=== PATIENT | female | born 1985 | race African-American/Black ===

== ENCOUNTER 2016-05-15 14:26 | Emergency (ER) | payer OTHER ==
[~2016-05-15] VITALS: Ht 175.3 cm; Wt 89.4 kg
[2016-05-15] MEDS ORDERED: KETOROLAC TROMETHAMINE 60 MG/2 ML SYRINGE. IM ONE (15:30)
[2016-05-15 15:44] LABS: OBC FLU VALID
[2016-05-15 16:34] VITALS: BP 126/80
--- NOTE | 2016-05-15 16:41 | PHYS DOC ---
Past Medical History Past Medical History: Anxiety, Bronchitis, Depression Past Surgical History: Tubal ligation, Other Additional Past Surgical Histo: cyst removal left breast Additional Information: 1/2 - 1 PACK/DAY Alcohol Use: Rarely Drug Use: None Adult General Chief Complaint Chief Complaint: CHEST WALL PAIN HPI HPI 30-year-old female who is had mild chest discomfort as well as a sore throat and headache after known exposure to her child who had strep and influenza type A. Patient states she's had symptoms for the last day area. She is concerned that she could have flu or strep throat and would like to be tested. She denies any significant health problems she denies any significant shortness of breath. Patient is speaking in complete sentences in no distress whatsoever. She states she has had minimal appetite but has been able to wrinkle water without difficulty. She has not taken anything for her symptoms. Review of Systems Review of Systems Constitutional: Denies fever or chills [] Eyes: Denies change in visual acuity, redness, or eye pain [] HENT: Has nasal congestion, has sore throat [] Respiratory: Denies cough or shortness of breath [] Cardiovascular: No additional information not addressed in HPI [] GI: Denies abdominal pain, nausea, vomiting, bloody stools or diarrhea [] : Denies dysuria or hematuria [] Musculoskeletal: Denies back pain or joint pain [] Integument: Denies rash or skin lesions [] Neurologic: Denies headache, focal weakness or sensory changes [] Endocrine: Denies polyuria or polydipsia [] Current Medications Current Medications Current Medications Medications (Trade) [place] [facility] [place] Start Time Stop Time Status Last Admin Dose Admin Ketorolac Tromethamine (Toradol Im) 60 mg 1X ONCE 05/15/16 15:30 05/15/16 15:31 DC 05/15/16 15:35 60 MG Allergies Allergies Allergies Coded Allergies Type Severity Reaction Last Updated Verified No Known Drug Allergies 05/21/13 No Physical Exam Physical Exam Constitutional: Well developed, well nourished, no acute distress, non-toxic appearance. [] HENT: Normocephalic, atraumatic, bilateral external ears normal, oropharynx moist, no oral exudates, nose normal. [] Eyes: PERRLA, EOMI, conjunctiva normal, no discharge. [] Neck: Normal range of motion, no tenderness, supple, no stridor. [] Cardiovascular:Heart rate regular rhythm, no murmur [] Lungs & Thorax: Bilateral breath sounds clear to auscultation [] Abdomen: Bowel sounds normal, soft, no tenderness, no masses, no pulsatile masses. [] Skin: Warm, dry, no erythema, no rash. [] Back: No tenderness, no CVA tenderness. [] Extremities: No tenderness, no cyanosis, no clubbing, ROM intact, no edema. [] Neurologic: Alert and oriented X 3, normal motor function, normal sensory function, no focal deficits noted. [] Psychologic: Affect normal, judgement normal, mood normal. [] Current Patient Data Vital Signs Vital Signs Date Time Temp Pulse Resp B/P Pulse Ox O2 Delivery O2 Flow Rate FiO2 05/15/16 14:37 98.3 99 20 142/83 100 Room Air 98.3 Lab Values Laboratory Tests Test 05/15/16 14:36 Influenza Type A Antigen Negative (NEGATIVE) Influenza Type B Antigen Negative (NEGATIVE) EKG EKG [] Radiology/Procedures Radiology/Procedures [] Course & Med Decision Making Course & Med Decision Making Pertinent Labs and Imaging studies reviewed. (See chart for details) This 30 yo female has negative strep test and influenza and will be discharged with instruction to continue drink plenty of fluids and to take anti- inflammatories as needed. There is no indication to perform any laboratory testing at this time. She will be discharged with her primary care doctor next several days for symptom resolution. Dragon Disclaimer Dragon Disclaimer This electronic medical record was generated, in whole or in part, using a voice recognition dictation system. Departure Departure Impression: Primary Impression: Sore throat Disposition: 01 HOME, SELF-CARE Condition: STABLE Referrals: TITO EVANS MD (PCP) Patient Instructions: Viral Pharyngitis Additional Instructions: Please follow up with your primary doctor in the next 2-3 days for your symptoms. Return to the ER if you develop any worsening of your symptoms. Continue to drink plenty of fluids and take anti-inflammatories. Return to the ER if you develop any worsening of your symptoms. Scripts Ibuprofen 800 Mg [id number] Mg PO PRN Q6HRS PRN INFLAMMATION #20 TAB Prov:CHRISSIE SNOW DO 05/15/16 CHRISSIE SNOW DO May 15, 2016 16:41
[2016-05-15] MEDS ORDERED: IBUP-1060 PO (16:44)
[2016-05-15 20:08] LABS: NEG OBC UR NEG
[2016-05-15 20:09] LABS: POS OBC UR POS
[2016-05-16 07:24] LABS: NEGATIVE OBC STREP NEG; POSITIVE OBC STREP POS
== END 2016-05-15 16:53 | disposition home or self-care (01) ==
LOC: ER 14:26
DX: J02.9 Acute pharyngitis, unspecified (principal); F32.9 Major depressive disorder, single episode, unspecified; R07.89 Other chest pain; F41.9 Anxiety disorder, unspecified; F17.210 Nicotine dependence, cigarettes, uncomplicated
CPT/HCPCS: 81025; 87070; 87804; 87880; 96372; 99284; J1885

== ENCOUNTER → 2016-07-21 | Outpatient (CLI) | payer OTHER ==
[~2016-07-21] MED LIST: IBUP-1060 PO
--- NOTE | 2016-07-21 16:54 | RAD ---
Left breast ultrasound, 07/21/2016: History: Lump, pain A targeted ultrasound exam of the area of clinical concern at the 7:00 location was performed. There is a 9 mm simple cyst at the 7:00 location, located approximately 7 cm from the nipple. More centrally at the 7:00 location approximately 4 cm from the nipple there is a 5 x 6 x 3 mm smooth oval-shaped hypoechoic nodule that demonstrates low level internal echoes with faint posterior acoustic enhancement. This probably represents a small complicated cyst or fibroadenoma. No other abnormality is seen in this region. IMPRESSION: 1. Simple cyst at the 7:00 location. 2. Nearby smooth hypoechoic nodule which is probably a complicated cyst or fibroadenoma. Sonographic follow-up is suggested to confirm stability. BI-RADS 3-probably benign finding
== END | disposition home or self-care (01) ==
LOC: US 14:44
PROVIDERS: ATTEND Family Medicine
DX: N63 Unspecified lump in breast (principal)
CPT/HCPCS: 76641

== ENCOUNTER 2017-09-28 19:09 | Emergency (ER) | payer OTHER | END 2017-09-28 20:14 | disposition home or self-care (01) | LOC: ER 19:09 | DX: S80.862A Insect bite (nonvenomous), left lower leg, initial encounter (principal); S80.861A Insect bite (nonvenomous), right lower leg, initial encounter; W57.XXXA Bitten or stung by nonvenomous insect and other nonvenomous arthropods, initial encounter; Y93.89 Activity, other specified; Y99.8 Other external cause status; Y92.89 Other specified places as the place of occurrence of the external cause | CPT/HCPCS: 99283 ==

== ENCOUNTER 2021-09-06 16:40 | Emergency (ER) | payer OTHER ==
[~2021-09-06] VITALS: Ht 175.3 cm; Wt 88.6 kg
[~2021-09-06 16:40] MED LIST changes: +TRIA15OI TP
[2021-09-06] MEDS ORDERED: NITROGLYCERIN SUBLINGUAL 0.4 MG BOTTLE OF 25. SL PRN (17:00)
[2021-09-06] MEDS ORDERED: MORPHINE SULFATE 2 MG/ML INJ. IV/SQ PRN (17:00)
[2021-09-06] MEDS ORDERED: ASPIRIN 325 MG TABLET PO ONE (17:00)
[2021-09-06 17:13] LABS: BASO % 1 % (0-3); EOS # 0.2 x10^3/uL (0.0-0.7); EOS % 3 % (0-3); HEMATOCRIT 32.8 % (36.0-47.0); LYMPH % 38 % (24-48); MEAN CORPUSCULAR HEMOGLOBIN 29 pg (25-35); MEAN CORPUSCULAR HGB CONC 33 g/dL (31-37); MEAN CORPUSCULAR VOLUME 86 fL (79-100); MONO # 0.4 x10^3/uL (0.0-1.1); MONO % 7 % (0-9); NEUT # 2.8 x10^3/uL (1.8-7.7); NEUT % 52 % (31-73); PLATELET COUNT 250 x10^3/uL (140-400); RED BLOOD COUNT 3.83 x10^6/uL (3.50-5.40); RED CELL DISTRIBUTION WIDTH 15.2 % (11.5-14.5); WHITE BLOOD COUNT 5.4 x10^3/uL (4.0-11.0)
--- NOTE | 2021-09-06 17:20 | RAD ---
Exam: Chest one view INDICATION: Chest pain, pain TECHNIQUE: Frontal view of the chest Comparisons: 05/21/2013 FINDINGS: The cardiomediastinal silhouette and pulmonary vessels are within normal limits. The lung and pleural spaces are clear. IMPRESSION: No acute cardiopulmonary process. Electronically signed by: Sonu Farrell MD (09/06/2021 5:18 PM) JC
[2021-09-06 17:30] LABS: CALCIUM 9.1 mg/dL (8.5-10.1); CREATININE 0.8 mg/dL (0.6-1.0); GFR 97.1; POTASSIUM 3.7 mmol/L (3.5-5.1)
[2021-09-06 17:36] LABS: MAGNESIUM 1.8 mg/dL (1.8-2.4); TOTAL BILIRUBIN 0.3 mg/dL (0.2-1.0)
--- NOTE | 2021-09-06 17:45 | PHYS DOC ---
Past Medical History Past Medical History: Anxiety, Bronchitis, Depression Past Surgical History: Tubal ligation, Other Additional Past Surgical Histo: cyst removal right breast Smoking Status: Current Every Day Smoker Alcohol Use: None Drug Use: None General Adult EDM: Chief Complaint: CHEST PAIN HPI: HPI: Patient is a 36 year old female with a history of anxiety, depression, current smoker. Presented to the ED today complaining of a 6 out of 10 substernal chest pain, symptoms have been going on for 1 week. Patient denies anything specifically relieving the symptoms but states smoking exacerbates the symptoms. She states she has been under a lot of stress and her stress levels are high. Denies any SI or HI. Reports having similar chest pain whenever she is under stress. Review of Systems: Review of Systems: Constitutional: Denies fever or chills. [] Eyes: Denies change in visual acuity. [] HENT: Denies nasal congestion or sore throat. [] Respiratory: Denies cough or shortness of breath. [] Cardiovascular: Reports chest pain GI: Denies abdominal pain, nausea, vomiting, bloody stools or diarrhea. [] : Denies dysuria. [] Musculoskeletal: Denies back pain or joint pain. [] Integument: Denies rash. [] Neurologic: Denies headache, focal weakness or sensory changes. [] Psychiatric: Reports stress Heart Score: C/O Chest Pain: N/A Risk Factors: Risk Factors: DM, Current or recent (<one month) smoker, HTN, HLP, family history of CAD, obesity. Risk Scores: Score 0 - 3: 2.5% MACE over next 6 weeks - Discharge Home Score 4 - 6: 20.3% MACE over next 6 weeks - Admit for Clinical Observation Score 7 - 10: 72.7% MACE over next 6 weeks - Early Invasive Strategies Current Medications: Current Medications Medications (Trade) Dose Ordered Sig/Ivelisse Start Time Stop Time Status Last Admin Dose Admin Aspirin (Shantelle Aspirin) 325 mg 1X ONCE 09/06/21 17:00 09/06/21 17:06 DC 09/06/21 17:26 325 MG Morphine Sulfate (Morphine Sulfate) 2 mg PRN Q15MIN PRN 09/06/21 17:00 09/07/21 16:59 09/06/21 17:26 2 MG Nitroglycerin (Nitrostat) 0.4 mg PRN Q5MIN PRN 09/06/21 17:00 09/07/21 16:59 09/06/21 17:26 0.4 MG Allergies: Allergies: Allergies Coded Allergies Type Severity Reaction Last Updated Verified No Known Drug Allergies 05/21/13 No Physical Exam: PE: Constitutional: Well developed, well nourished, no acute distress, non-toxic appearance. [] HENT: Normocephalic, atraumatic, bilateral external ears normal, oropharynx moist, no oral exudates, nose normal. [] Eyes: PERRLA, EOMI, conjunctiva normal, no discharge. [] Neck: Normal range of motion, no tenderness, supple, no stridor. [] Cardiovascular:Heart rate regular rhythm, no murmur [] Lungs & Thorax: Bilateral breath sounds clear to auscultation [] Abdomen: Bowel sounds normal, soft, no tenderness, no masses, no pulsatile masses. [] Skin: Warm, dry, no erythema, no rash. [] Back: No tenderness, no CVA tenderness. [] Extremities: No tenderness, no cyanosis, no clubbing, ROM intact, no edema. [] Neurologic: Alert and oriented X 3, normal motor function, normal sensory function, no focal deficits noted. [] Psychologic: Affect normal, judgement normal, mood normal. [] Current Patient Data: Labs: Laboratory Tests Test 09/06/21 16:58 White Blood Count 5.4 x10^3/uL (4.0-11.0) Red Blood Count 3.83 x10^6/uL (3.50-5.40) Hemoglobin 11.0 g/dL (12.0-15.5) L Hematocrit 32.8 % (36.0-47.0) L Mean Corpuscular Volume 86 fL (79-100) Mean Corpuscular Hemoglobin 29 pg (25-35) Mean Corpuscular Hemoglobin Concent 33 g/dL (31-37) Red Cell Distribution Width 15.2 % (11.5-14.5) H Platelet Count 250 x10^3/uL (140-400) Neutrophils (%) (Auto) 52 % (31-73) Lymphocytes (%) (Auto) 38 % (24-48) Monocytes (%) (Auto) 7 % (0-9) Eosinophils (%) (Auto) 3 % (0-3) Basophils (%) (Auto) 1 % (0-3) Neutrophils # (Auto) 2.8 x10^3/uL (1.8-7.7) Lymphocytes # (Auto) 2.0 x10^3/uL (1.0-4.8) Monocytes # (Auto) 0.4 x10^3/uL (0.0-1.1) Eosinophils # (Auto) 0.2 x10^3/uL (0.0-0.7) Basophils # (Auto) 0.0 x10^3/uL (0.0-0.2) Sodium Level 136 mmol/L (136-145) Potassium Level 3.7 mmol/L (3.5-5.1) Chloride Level 104 mmol/L (98-107) Carbon Dioxide Level 22 mmol/L (21-32) Anion Gap 10 (6-14) Blood Urea Nitrogen 10 mg/dL (7-20) Creatinine 0.8 mg/dL (0.6-1.0) Estimated GFR (Cockcroft-Gault) 97.1 BUN/Creatinine Ratio 13 (6-20) Glucose Level 83 mg/dL (70-99) Calcium Level 9.1 mg/dL (8.5-10.1) Magnesium Level 1.8 mg/dL (1.8-2.4) Total Bilirubin 0.3 mg/dL (0.2-1.0) Aspartate Amino Transferase (AST) 21 U/L (15-37) Alanine Aminotransferase (ALT) 13 U/L (14-59) L Alkaline Phosphatase 52 U/L (46-116) Troponin I High Sensitivity < 4 ng/L (4-50) L Total Protein 8.0 g/dL (6.4-8.2) Albumin 4.0 g/dL (3.4-5.0) Albumin/Globulin Ratio 1.0 (1.0-1.7) Laboratory Tests 09/06/21 16:58 Laboratory Tests 09/06/21 16:58 Vital Signs: Vital Signs Date Time Temp Pulse Resp B/P (MAP) Pulse Ox O2 Delivery O2 Flow Rate FiO2 09/06/21 17:26 16 09/06/21 17:26 95 147/89 09/06/21 16:50 98.1 100 Room Air 98.1 EKG: EK interpreted by Dr. Vila sinus rhythm heart rate 72 no STEMI [] Radiology/Procedures: Radiology/Procedures: []PROCEDURE: PORTABLE CHEST 1V Exam: Chest one view INDICATION: Chest pain, pain TECHNIQUE: Frontal view of the chest Comparisons: 05/21/2013 FINDINGS: The cardiomediastinal silhouette and pulmonary vessels are within normal limits. The lung and pleural spaces are clear. IMPRESSION: No acute cardiopulmonary process. Electronically signed by: Sonu Razo MD (09/06/2021 5:18 PM) [facility] DICTATED and SIGNED BY: SONU RAZO MD DATE: 09/06/21 113 Course & Med Decision Making: Course & Med Decision Making Pertinent Labs and Imaging studies reviewed. (See chart for details) This is a 36-year-old female patient presenting to the ED today complaining of chest pain that has been going on for 1 week. EKG is negative, troponin is negative, chest x-ray is negative, CBC CMP with no acute findings, vitals are stable. Discharged to home. Follow-up with PCP and telemedicine physician in the course of this week. Encouraged to consider smoking cessation. Encouraged patient to consider getting help through [facility] for stress Dragon Disclaimer: Dragon Disclaimer: This electronic medical record was generated, in whole or in part, using a voice recognition dictation system. Departure Departure Impression: Primary Impression: Chest pain Qualified Codes: R07.9 - Chest pain, unspecified Additional Impressions: Stress Smoking addiction Disposition: HOME / SELF CARE / HOMELESS Condition: STABLE Referrals: TITO EVANS MD (PCP) Follow-up in the course of next week Patient Instructions: Chest Pain (Nonspecific), Smoking Cessation, Stress Additional Instructions: You were evaluated in the emergency room for chest pain, your cardiac work-up is negative. Please follow-up with your primary care doctor as well as telemedicine physician provided in the next 7 days. Please consider getting help through [facility] for stress management. Consider smoking cessation. TISHA SANCHEZ COVER MACHINE OPERATOR September 06, 2021 17:45
[2021-09-06 18:37] VITALS: BP 146/83
--- NOTE | 2021-09-07 07:27 | EKG ---
[facility] [address] [place] [address] Test Date: 2021-09-06 Test Time: 16:49:15 Pat Name: SU BROWNLEE Department: Room: Gender: F [employer] Representative: : 1985 Requested By: TISHA SANCHEZ Order Number: [id number] Reading MD: Madi Love Measurements Intervals [place] Rate: 72 P: 52 OK: 152 QRS: 24 QRSD: 86 T: 27 QT: 394 QTc: 433 Interpretive Statements SINUS RHYTHM Electronically Signed On 09-09-2021 10:30:15 CDT by Madi Love
== END 2021-09-06 18:55 | disposition home or self-care (01) ==
LOC: ER 16:40
DX: R07.2 Precordial pain (principal); F43.9 Reaction to severe stress, unspecified; F41.9 Anxiety disorder, unspecified; F32.9 Major depressive disorder, single episode, unspecified; F17.200 Nicotine dependence, unspecified, uncomplicated
CPT/HCPCS: 36415; 71045; 80053; 83735; 84443; 84484; 85025; 93005; 96374; 99285; J2270